=== PATIENT | female | born 1975 | race Caucasian/White ===

== ENCOUNTER → 2017-10-12 | Outpatient (CLI) | payer BC ==
--- NOTE | 2017-10-12 17:04 | CONS ---
CONSULTATION This is a consultation note for sleep apnea. This is a 42-year-old female patient, who is coming in for further advice regarding obstructive sleep apnea. The patient's parents are well known to me. I have treated her father for obstructive sleep apnea and he is currently under my care. The patient is obese and she was concerned of obstructive sleep apnea knowing that she was and she was told to snore and quit breathing. She was having some increased tiredness and sleepiness during the day. However she has a very regular sleep-wake cycle due to work schedule. She works at [employer] in [place] and the patient works between 4:00 a.m. and 1:30 p.m. and there was another shift that she carries between 1:00 p.m. and 10:00 p.m. Depending on what shift she does at night, she goes to bed between 7:30 a.m. and 2:30 p.m. or she goes to bed around midnight and wakes up 7:00 a.m. in the morning. She average 5-6 hours of sleep. She does snore and she feels tired and sleepy during the day. Never the less, she does not fall asleep while driving. Knows she has fallen asleep during day-to-day activities. She has lost about 14 pounds over the past 1 year and she is committed to lose further weight. She does snore however and she has been told to quit breathing. For that reason, the patient was referred to the [facility]. The patient underwent a screening polysomnogram on 06/10/2017. The patient during the study was found to have a total of 34 respiratory events, 1 central, 8 obstructive and 24 hypopneas. The resulting apnea-hypopnea index was 5.9 and the disease was worse during REM with an AHI of 31.3. The patient had sleep architecture was characterized by 14.3% stage I, 54.8% stage II, 0% stage III, 7.7% REM sleep. Her sleep efficiency in general was 71%. She did demonstrate nocturnal arousals and she also demonstrated some mild nocturnal oxygen desaturation with minimum pulse ox of 81%. No significant periodic limb movements were noted. Based on this study the patient was given the option of undergoing a CPAP treatment; however, the sleep center closed at [facility] and the patient is coming in for further undergoing titration to our center and proceeding with the treatment. PAST MEDICAL HISTORY: JENNIFER and seasonal allergies. SURGICAL HISTORY: Knee surgery. DRUG ALLERGIES: PENICILLIN, NEOSPORIN OUTPATIENT MEDICATION: Includes Zyrtec and calcium. SOCIAL HISTORY: The patient is a nonsmoker. No history of alcohol. No history of IV drugs. FAMILY HISTORY: Noncontributory. Although her father has atrial fibrillation, CHF, JENNIFER and asthma. Mother also has asthma. REVIEW OF SYSTEMS: 12-point review of system was done. Positive findings are mentioned above history of present illness. There is a 14 pound weight loss. No choking or gasping sensation in middle of the night during sleep. No grinding of the teeth. No sleepwalking. No anxiety or panic attacks. No palpitation. No heartburns. No depression. PHYSICAL EXAMINATION: BP is 153/75, pulse 84, respirations 16, temperature 98.3, saturation 98% on room air. Weight is 273, height is 5 feet 4 inches, BMI 46.8. Neck size 17 inches. GENERAL APPEARANCE: Calm, comfortable. Head is atraumatic, normocephalic. Neck is short supple. Crowding of posterior pharynx is present. There is no goiter or neck masses. LUNGS: Diminished breath sounds bilaterally, otherwise clear. HEART: Sounds are regular rate and rhythm. Normal S1, S2. No S3, S4. No murmurs. ABDOMEN: Soft, nontender. No organomegaly. EXTREMITIES: No edema. No cyanosis or clubbing. IMPRESSION: 1. Mild obstructive sleep apnea based on a sleep study that was done at [facility]. The patient was found to have an AHI of 5.9 with mild nocturnal oxygen saturation. 2. Daytime sleepiness. 3. Snoring. 4. Irregular sleep-wake cycle due to different work schedule. 5. Obesity with a body mass index of 46.8. 6. Seasonal rhinitis. PLAN: Explained the findings with the patient. She is aware that her disease is mild in nature and outcome of CPAP therapy varies in mild JENNIFER cases. Some patients may see significant benefit whereas in others the impact of CPAP therapy may be minimal. We are going to give her a trial of CPAP therapy. The patient will come in for a CPAP titration. Meanwhile I asked to regulate sleep through her sleep schedule and try to work in 1 shift if possible, encourage losing weight, sleeping in a sidewise body position, implementing good sleep hygiene measures. I will see her back following the titration to decide if treatment will be implemented as needed. MMFILOMENAL / IJN: [id number] /
== END | disposition home or self-care (01) ==
LOC: SLEEP 13:03
PROVIDERS: ATTEND Internal Medicine Critical Care Medicine
DX: G47.33 Obstructive sleep apnea (adult) (pediatric) (principal); E66.9 Obesity, unspecified; J31.0 Chronic rhinitis; Z99.89 Dependence on other enabling machines and devices; Z68.42 Body mass index [BMI] 45.0-49.9, adult; Z79.899 Other long term (current) drug therapy; Z88.0 Allergy status to penicillin; Z88.1 Allergy status to other antibiotic agents
CPT/HCPCS: 99201

== ENCOUNTER → 2018-01-11 | Outpatient (CLI) | payer BC ==
--- NOTE | 2018-01-11 18:59 | PN ---
PROGRESS NOTE Melecio is 42, diagnosed having mild obstructive sleep apnea with an AHI of 5.9. Today she is coming in for a compliancy check. The patient has a CPAP machine which is set at a pressure of 8 cm of water. She reports marked improvement in sleep quality; snoring has subsided and she is waking up much more alert and refreshed during the day. She likes the treatment she is committed to long-term CPAP therapy. On her CPAP compliance data, the patient has been averaging about 6.3 hours of CPAP use per night. Her CPAP use for more than 4 hours is 100%. AHI is down to 1.1. She is using the AirFit P10 extra-small. She has no complaints. She is trying to lose weight, although we have not seen a significant drop in her body weight. Her Linden score is currently 5. REVIEW OF SYSTEMS: Twelve-point review of systems was done. Positive findings are all mentioned above in the history of present illness. PHYSICAL EXAMINATION: BP is 140/81, pulse 82, respiration 16. Weight is 276. Temperature is 97.8. Linden score is 5. Saturation 95% on room air. GENERAL APPEARANCE: Calm, comfortable. Head is atraumatic, normocephalic. NECK: Supple. No JVD. No goiter or neck masses. LUNGS: Clear to auscultation. HEART: Heart sounds are regular rate and rhythm. Normal S1, S2. No S3, S4. No murmurs. ABDOMEN: Soft, nontender. No organomegaly. EXTREMITIES: No edema. No cyanosis or clubbing. NEUROLOGIC: Alert and oriented x3. No focal neurological deficits. PSYCHIATRY: Negative for anxiety or depression. IMPRESSION: 1. Obstructive sleep apnea, mild; apnea/hypopnea index of 5.9. The patient has been successfully treated with CPAP and the patient is currently on a pressure of 8. 2. Chronic snoring, recovered. 3. Obesity; body mass index of 46.8. 4. Seasonal rhinitis. PLAN: Continue CPAP setting at the current pressure. Treatment is successful. The patient is benefitting from the treatment. She is using the AirFit P10 extra-small. No other changes for now. She is content with the treatment and will see me back in a year's time, earlier if needed. MMODL / IJN: [id number] /
== END ==
LOC: SLEEP 13:42
PROVIDERS: ATTEND Internal Medicine Critical Care Medicine
DX: G47.33 Obstructive sleep apnea (adult) (pediatric) (principal); E66.9 Obesity, unspecified; J31.0 Chronic rhinitis; Z68.42 Body mass index [BMI] 45.0-49.9, adult; Z99.89 Dependence on other enabling machines and devices